=== PATIENT | male | born 1940 | race Caucasian/White ===

== ENCOUNTER 2021-03-17 12:46 | Outpatient (REF) | payer MEDICARE, BC, SELFPAY ==
--- NOTE | ~2021-03-17 | CT_ITS ---
EXAMINATION: CT HEAD WITHOUT CONTRAST CLINICAL INFORMATION: [facility]. COMPARISON: None TECHNIQUE: Contiguous axial imaging was performed from the skull base to vertex without intravenous administration of contrast. This CT examination was performed using dose optimization techniques as appropriate, variously including the following: *Automated exposure control *Adjustment of mA and/or kV according to patient size (this includes techniques or standardized protocols for targeted exams where dose is matched to indication/reason for exam; i.e. extremities or head) *Use of iterative reconstruction technique DLP: 1036 mGy-cm FINDINGS: There is no evidence of acute intracranial hemorrhage or territorial infarction. There is hypodensity seen in both mesial occipital lobes suggestive of old infarcts. There is a lacunar infarct in bilateral basal ganglia and right thalamus. No abnormal mass effect or midline shift is seen. Cohn to white matter differentiation is well preserved. No extra-axial fluid collections are identified. The lateral ventricles are symmetrical but moderately enlarged. There is diffuse periventricular hypodensity likely chronic small vessel ischemic changes. There is no abnormal attenuation within the brain parenchyma. The osseous structures and soft tissues are normal. There is mild mucoperiosteal thickening right posterior ethmoid sinus. Rest of the paranasal sinuses and mastoid air cells are well aerated. CT/CT head/brain wo con IMPRESSION: No acute intracranial process seen. Moderate cerebral atrophy with chronic small vessel ischemic changes. 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
== END 2021-03-17 12:47 | disposition home or self-care (01) ==
LOC: HO.CT 12:46
PROVIDERS: PCP Physician Assistant Medical; Visit Provider Psychiatry & Neurology Neurology
DX: G31.84 Mild cognitive impairment of uncertain or unknown etiology (principal)
CPT/HCPCS: 70450